=== PATIENT | female | born 2000 | race Caucasian/White ===

== ENCOUNTER 2018-04-17 02:30 | Emergency (ER) | payer OTHER ==
[~2018-04-17] VITALS: Ht 149.9 cm; Wt 78.5 kg
[2018-04-17] MEDS ORDERED: ZYNCOF 20-400120 ML PO (06:52)
[2018-04-17] MEDS ORDERED: ALBUTEROL2.5 MG/3 M IH (06:52)
[2018-04-17] MEDS ORDERED: ZYRTEC10 MG PO (06:53)
== END 2018-04-17 06:58 | disposition home or self-care (01) ==
LOC: ER 02:30
DX: J06.9 Acute upper respiratory infection, unspecified (principal)

== ENCOUNTER 2018-06-22 14:19 | Outpatient (CLI) | payer OTHER ==
[~2018-06-22 14:19] MED LIST: ALBUTEROL2.5 MG/3 M IH; ZYNCOF 20-400120 ML PO; ZYRTEC10 MG PO
== END 2018-06-23 00:19 | disposition home or self-care (01) ==
LOC: OBS/DEL 14:19
DX: O26.893 Other specified pregnancy related conditions, third trimester (principal); R11.2 Nausea with vomiting, unspecified; Z34.83 Encounter for supervision of other normal pregnancy, third trimester

== ENCOUNTER 2018-08-02 06:27 | Inpatient (IN) | payer OTHER ==
[~2018-08-02] VITALS: Ht 149.9 cm; Wt 91.6 kg
== END 2018-08-04 19:06 | disposition home or self-care (01) | DRG 807 ==
LOC: LDR 06:27 → OB/GYN 06:27
PROVIDERS: ADMIT Obstetrics & Gynecology
PROC: 4A1HXCZ Monitoring of Products of Conception, Cardiac Rate, External Approach (ICD-10-PCS; 2018-08-02)
PROC: 10E0XZZ Delivery of Products of Conception, External Approach (ICD-10-PCS; principal; 2018-08-03)
PROC: 4A033R1 Measurement of Arterial Saturation, Peripheral, Percutaneous Approach (ICD-10-PCS; 2018-08-03)
DX: O80 Encounter for full-term uncomplicated delivery (principal); Z37.0 Single live birth; Z3A.39 39 weeks gestation of pregnancy

== ENCOUNTER → 2020-04-14 | Outpatient (CLI) | payer OTHER | END | disposition home or self-care (01) | LOC: PRENATAL 15:23 | PROVIDERS: ATTEND Obstetrics & Gynecology Maternal & Fetal Medicine | DX: O35.0XX1 Maternal care for (suspected) central nervous system malformation in fetus, fetus 1 (principal); O35.3XX1 Maternal care for (suspected) damage to fetus from viral disease in mother, fetus 1; O98.512 Other viral diseases complicating pregnancy, second trimester; O99.891 Other specified diseases and conditions complicating pregnancy; Z36.89 Encounter for other specified antenatal screening; Z3A.19 19 weeks gestation of pregnancy ==

== ENCOUNTER 2020-09-03 06:27 | Inpatient (IN) | payer OTHER ==
[~2020-09-03] VITALS: Ht 149.9 cm; Wt 90.3 kg
[2020-09-03] MEDS ORDERED: PRENATAL CAPLE1 EAC1 (06:55)
== END 2020-09-05 17:51 | disposition home or self-care (01) | DRG 785 ==
LOC: LDR 06:27 → OB/GYN 06:27
PROVIDERS: ADMIT Obstetrics & Gynecology; ATTEND Obstetrics & Gynecology
PROC: 10907ZC Drainage of Amniotic Fluid, Therapeutic from Products of Conception, Via Natural or Artificial Opening (ICD-10-PCS; 2020-09-03)
PROC: 3E033VJ Introduction of Other Hormone into Peripheral Vein, Percutaneous Approach (ICD-10-PCS; 2020-09-03)
PROC: 4A1HXFZ Monitoring of Products of Conception, Cardiac Rhythm, External Approach (ICD-10-PCS; 2020-09-03)
PROC: 10D00Z1 Extraction of Products of Conception, Low, Open Approach (ICD-10-PCS; principal; 2020-09-04)
PROC: 0UB70ZZ Excision of Bilateral Fallopian Tubes, Open Approach (ICD-10-PCS; 2020-09-04)
DX: O62.1 Secondary uterine inertia (principal); O61.0 Failed medical induction of labor; Z30.2 Encounter for sterilization; Z3A.39 39 weeks gestation of pregnancy; Z37.0 Single live birth

== ENCOUNTER 2022-12-24 18:08 | Emergency (ER) | payer OTHER ==
[~2022-12-24] VITALS: Ht 124.5 cm; Wt 81.6 kg
[~2022-12-24 18:08] MED LIST changes: +PRENATAL CAPLE1 EAC1
== END 2022-12-24 20:40 | disposition home or self-care (01) ==
LOC: ER 18:08
DX: L52 Erythema nodosum (principal); B27.00 Gammaherpesviral mononucleosis without complication